=== PATIENT | female | born 1995 | race Caucasian/White ===

== ENCOUNTER 2020-08-06 05:13 | Emergency (ER) | payer OTHER ==
[~2020-08-06] VITALS: Ht 160 cm; Wt 78.1 kg
[2020-08-06 05:25] VITALS: Ht 160 cm; Wt 78.1 kg
[2020-08-06 06:08] VITALS: BP 128/83
== END 2020-08-06 06:08 | disposition home or self-care (01) ==
LOC: ED 05:13
DX: O26.891 Other specified pregnancy related conditions, first trimester (principal); H66.91 Otitis media, unspecified, right ear; Z3A.11 11 weeks gestation of pregnancy